=== PATIENT | male | born 1990 | race Caucasian/White ===

== ENCOUNTER 2016-07-29 20:31 | Emergency (ER) | payer MEDICAID ==
[2016-07-29 20:47] VITALS: BP 131/83; PULSE 75; RESP 16; TEMP 98.1; O2SAT 95
--- NOTE | 2016-07-29 21:01 | EDPHY ---
H & P Time Seen by Provider: 07/29/16 20:40 HPI/ROS: CHIEF COMPLAINT: "I just want to talk to someone" HISTORY OF PRESENT ILLNESS: 25-year-old male self-described history of depression, PTSD, took the bus to the emergency department stating "just want to talk to somebody". He has been off of his medications and feels that he is "starting to go down". He denies suicidal or homicidal ideation. Denies self- injurious attempt. PHYSICAL EXAM (Prior to examination, patient consented to physical exam, hands were washed and my usual and customary physical exam procedures followed) 1) GENERAL: Well-developed, well-nourished, alert and oriented. Appears to be in no acute distress. 2) HEAD: Normocephalic 3) HEENT: sclera anicteric 4) LUNGS: Breathing comfortably. 5) PSYCHIATRIC: depressed, flat affect Smoking Status: Unknown if ever smoked Constitutional: Initial Vital Signs Temperature (C) 36.7 C 07/29/16 20:45 Heart Rate 75 07/29/16 20:45 Respiratory Rate 16 07/29/16 20:45 Blood Pressure 131/83 H 07/29/16 20:45 O2 Sat (%) 95 07/29/16 20:45 O2 Delivery Mode Room Air Allergies/Adverse Reactions: No Known Allergies Allergy (Unverified 07/29/16 20:48) Home Medications: Medication Instructions Recorded Flexeril 07/29/16 GABAPENTIN 07/29/16 Quetiapine Fumarate [Seroquel] 07/29/16 buPROPion SR [Wellbutrin 100mg SR 07/29/16 (*)] traZODone 07/29/16 MDM/Departure - MDM ED Course/Re-evaluation: This patient denies suicidal homicidal ideation. He does not meet criteria for mental health hold that. I offered to send the patient via taxi to [facility] walk-in clinic. He is agreeable with this. - Depart Disposition: Home, Routine, Self-Care Clinical Impression: PTSD (post-traumatic stress disorder) Condition: Fair Instructions: Post Traumatic Stress Disorder (ED) Additional Instructions: Call 911 if you develop thoughts of hurting yourself or hurting anybody else Referrals: [facility],. [Clinic] - 07/29/16 9:30 pm (Go directly to the [facility] walk-in clinic on [address] in [place])
== END 2016-07-29 21:15 | disposition home or self-care (01) ==
DX: F43.10 Post-traumatic stress disorder, unspecified (principal)

== ENCOUNTER 2017-11-07 00:55 | Emergency (ER) | payer MEDICAID, OTHER ==
[2017-11-07] MEDS ORDERED: ONDANSETRON 4 MG/2 ML VIAL ONE (01:01)
[2017-11-07] MEDS ORDERED: ONDANSETRON 4 MG/2 ML VIAL IVP ONE (01:08)
[2017-11-07] MEDS ORDERED: NS 1,000 ML IV ONE (01:20)
--- NOTE | 2017-11-07 02:37 | EDPHY ---
H & P Stated Complaint: N/v, "bug bites all over" from camping Time Seen by Provider: 11/07/17 01:10 HPI/ROS: Chief Complaint: Nausea HPI: 27-year-old male [place] Patient discovered he did not have 10 full so simply set up a sleeping bag on the ground. Patient woke up a couple hours later and felt nauseated. He vomited once. Continues to feel nauseated. Patient pack tepid stuff and flagged down a car and called 911. Does not have a history of similar symptoms in the past. Does smoke marijuana daily. Denies abdominal pain. No fevers or chills. No blood or coffee-grounds in his vomit. No dark black tarry stools. ROS: 10 point Review of Systems is negative except as noted in the HPI. PMH: Denies Social History: Positive smoking, occasional alcohol, daily marijuana Family History: non-contributory Physical Exam: Gen: Awake, Alert, No Distress HEENT: Nose: no rhinorrhea Eyes: PERRLA, EOMI Mouth: Moist mucosa Neck: Supple, no JVD Chest: nontender, lungs clear to auscultation Heart: S1, S2 normal, no murmur Abd: Soft, non-tender, no guarding Back: no CVA tenderness, no midline tenderness Ext: no edema, non-tender Skin: no rash Neuro: CN II-XII intact, Sensation grossly intact, Strength 5/5 in bilateral upper and lower extremities - Personal History Current Tetanus Diphtheria and Acellular Pertussis (TDAP): Unsure - Medical/Surgical History Hx Asthma: No Hx Chronic Respiratory Disease: No Hx Diabetes: No Hx Cardiac Disease: No Hx Renal Disease: No Hx Cirrhosis: No Hx Alcoholism: No Hx HIV/AIDS: No Hx Splenectomy or Spleen Trauma: No Other PMH: PTSD, right shoulder injury, depression, anxiety - Social History Smoking Status: Unknown if ever smoked Constitutional: Initial Vital Signs Temperature (C) 36.8 C 11/07/17 01:04 Heart Rate 71 11/07/17 01:04 Respiratory Rate 20 11/07/17 01:04 Blood Pressure 138/67 H 11/07/17 01:04 O2 Sat (%) 98 11/07/17 01:04 O2 Delivery Mode Room Air Allergies/Adverse Reactions: No Known Allergies Allergy (Unverified 07/29/16 20:48) Home Medications: Medication Instructions Recorded Flexeril 07/29/16 GABAPENTIN 07/29/16 Quetiapine Fumarate [Seroquel] 07/29/16 buPROPion SR [Wellbutrin 100mg SR 07/29/16 (*)] traZODone 07/29/16 Medical Decision Making ED Course/Re-evaluation: Patient is sleeping. He has received 1 L normal saline and IV Zofran. Patient is tolerating p.o.. [facility] , return for any concerns. No evidence of acute obstruction, intra-abdominal infection, or other acute surgical process. - Data Points Medications Given: Discontinued Medications Sodium Chloride (Ns) 1,000 mls @ 0 mls/hr IV ONCE ONE PRN Reason: Wide Open Stop: 11/07/17 01:21 Last Admin: 11/07/17 01:21 Dose: 1,000 mls Ondansetron HCl (Zofran) 4 mg IVP EDNOW ONE Stop: 11/07/17 01:09 Last Admin: 11/07/17 01:08 Dose: 4 mg Departure - Departure Disposition: Home, Routine, Self-Care Clinical Impression: Nausea & vomiting Condition: Good Instructions: Acute Nausea and Vomiting (ED) Additional Instructions: Follow up at [facility] in 3-4 days for further evaluation. Return to the emergency department for worsening abdominal pain, uncontrolled vomiting, fevers, chills, or any other concerns. Referrals: [facility],. [Clinic] - As per Instructions
[2017-11-07 03:05] VITALS: BP 128/78
== END 2017-11-07 03:10 | disposition home or self-care (01) ==
LOC: EDUNIT#
DX: R11.2 Nausea with vomiting, unspecified (principal)
CPT/HCPCS: 96374; J2405

== ENCOUNTER 2018-01-24 17:28 | Emergency (ER) | payer MEDICAID ==
--- NOTE | 2018-01-24 17:42 | EDPHY ---
General - History Smoking Status: Unknown if ever smoked Time Seen by Provider: 01/24/18 17:35 Narrative: CHIEF COMPLAINT: M1 HISTORY OF PRESENT ILLNESS: Patient presents to on M1 hold due to suicidal ideation. He reports increasing depression this morning that has increased throughout the day. He has felt very suicidal and had a plan of killing himself by jumping in front of the vehicle. He denies any actual attempt to do so, and felt remorseful and went to the crisis Center. They placed him on a hold and sent him here. Symptoms have been persistent. He has history of PTSD and major depressive disorder. He has been off his medications due to 3 months. He admits to speed use yesterday but denies any methamphetamine or alcohol use today. No other associated complaints or modifying factors. No recent mental health care. PSYCHIATRIC DIAGNOSES: PTSD, major depressive disorder PRIOR PSYCHIATRIC EVALUATIONS: Multiple inpatient evaluation M1/DETAINER: Crisis Center just prior to arrival REVIEW OF SYSTEMS: Ten systems reviewed and are negative unless otherwise noted in the HPI EXAMINATION General Appearance: Alert, no distress. Unkempt. Strong odor of feces. Head: normocephalic, atraumatic Eyes: Pupils equal and round, no conjunctival pallor or injection ENT, Mouth: Mucous membranes moist Neck: Normal inspection, supple, non-tender Respiratory: Lungs are clear to auscultation Cardiovascular: Regular rate and rhythm Gastrointestinal: Abdomen is soft and nontender Back: non-tender, no bony abnormalities Neurological: A&O, nonfocal, normal gait Skin: Unclean but grossly intact. Warm and dry, no rash Extremities: Nontender, no pedal edema Psychiatric: Depressed mood and flat affect. Admits to suicidal ideation with a plan of standing in front of a vehicle to kill himself. DIFFERENTIAL DIAGNOSES: Including but not limited to suicidal ideation, depression, major depressive disorder, PTSD MDM: 5:40 p.m. M1 hold due to suicidal ideation. The patient admits to feeling depressed, wanting to with a plan of jumping out front of a car. He says he has attempted overdose in the past, several years ago per he does admit to "speed" use yesterday. Denies any alcohol or methamphetamine use today. He is cooperative thus far. He knows that he is on an M1 hold. 6:30 p.m. Patient medically cleared for evaluation. 7:00 p.m. Notified that the patient has been evaluated by [facility]. 9:00 p.m. Patient resting comfortably watching television. 11:15 p.m. Notified by Ramos Mosquera Patient has been accepted to [facility]. He will be transported by EMS. EMTALA completed by Dr. Cole. SUPERVISION: Patient was independently examined, but I discussed the case with my secondary supervising physician Dr. Cole ([facility]) Medical Decision Making: The patient will be transferred to [facility] for inpatient psychiatric hospital bed not available at this facility, in stable condition; accepting physician is Dr. Smith. EMTALA form completed. PHYSICIAN DOCUMENTATION: The patient was evaluated and managed by the Physician [employer] and myself. I have reviewed the chart and agree with the findings and plan of care as documented. In addition, I examined the patient myself at 2310. History confirmed as suicidal ideation. Physical findings as follows: Patient is reluctant to make eye contact, flat affect. He will be admitted after psychiatric evaluation for ATU stabilization. I am the secondary supervising physician. (Sean Cole) - Objective Vital Signs: Initial Vital Signs Temperature (C) 37.0 C 01/24/18 17:14 Heart Rate 81 01/24/18 17:14 Respiratory Rate 16 01/24/18 17:14 Blood Pressure 148/85 H 01/24/18 17:14 O2 Sat (%) 97 01/24/18 17:14 O2 Delivery Mode Room Air Allergies/Adverse Reactions: No Known Allergies Allergy (Unverified 07/29/16 20:48) Home Medications: Medication Instructions Recorded Flexeril 07/29/16 GABAPENTIN 07/29/16 Quetiapine Fumarate [Seroquel] 07/29/16 buPROPion SR [Wellbutrin 100mg SR 07/29/16 (*)] traZODone 07/29/16 Laboratory Results: Laboratory Results 01/24/18 18:00 01/24/18 18:00 01/24/18 01/24/18 01/24/18 18:00 18:00 17:30 WBC 9.86 10^3/uL H 10^3/uL (3.80-9.50) RBC 4.37 10^6/uL L 10^6/uL (4.40-6.38) Hgb 13.0 g/dL L g/dL (13.7-17.5) Hct 35.6 % L % (40.0-51.0) MCV 81.5 fL fL (81.5-99.8) MCH 29.7 pg pg (27.9-34.1) MCHC 36.5 g/dL g/dL (32.4-36.7) RDW 12.8 % % (11.5-15.2) Plt Count 209 10^3/uL 10^3/uL (150-400) MPV 8.4 fL L fL (8.7-11.7) Neut % (Auto) 56.1 % % (39.3-74.2) Lymph % (Auto) 32.9 % % (15.0-45.0) [place] % (Auto) 9.7 % % (4.5-13.0) Eos % (Auto) 0.9 % % (0.6-7.6) Baso % (Auto) 0.3 % % (0.3-1.7) Nucleat RBC Rel Count 0.0 % % (0.0-0.2) Absolute Neuts (auto) 5.53 10^3/uL 10^3/uL (1.70-6.50) Absolute Lymphs (auto) 3.24 10^3/uL H 10^3/uL (1.00-3.00) Absolute Monos (auto) 0.96 10^3/uL H 10^3/uL (0.30-0.80) Absolute Eos (auto) 0.09 10^3/uL 10^3/uL (0.03-0.40) Absolute Basos (auto) 0.03 10^3/uL 10^3/uL (0.02-0.10) Absolute Nucleated RBC 0.00 10^3/uL 10^3/uL (0-0.01) Immature Gran % 0.1 % % (0.0-1.1) Immature Gran # 0.01 10^3/uL 10^3/uL (0.00-0.10) Sodium 139 mEq/L mEq/L (135-145) Potassium 3.5 mEq/L mEq/L (3.3-5.0) Chloride 100 mEq/L mEq/L (97-110) Carbon Dioxide 29 mEq/l mEq/l (22-31) Anion Gap 10 mEq/L mEq/L (8-16) BUN 22 mg/dL mg/dL (7-23) Creatinine 0.7 mg/dL mg/dL (0.7-1.3) Estimated GFR > 60 Glucose 111 mg/dL H mg/dL (70-100) Calcium 8.9 mg/dL mg/dL (8.5-10.4) Salicylates < 1.0 mg/dL L mg/dL (2.0-20.0) Urine Opiates Screen NEGATIVE (NEGATIVE) Acetaminophen < 10 mcg/mL L mcg/mL (10-30) Urine Barbiturates NEGATIVE (NEGATIVE) Ur Phencyclidine Scrn NEGATIVE (NEGATIVE) Ur Amphetamine Screen NEGATIVE (NEGATIVE) U Benzodiazepines Scrn NEGATIVE (NEGATIVE) Urine Cocaine Screen NEGATIVE (NEGATIVE) U Marijuana (THC) Screen NEGATIVE (NEGATIVE) Ethyl Alcohol < 10 mg/dL mg/dL (0-10) Departure - Departure Disposition: Other Psych, Not [place] Clinical Impression: Suicidal ideation Condition: Good Referrals: Patient,NotPresent [Primary Care Provider] - As per Instructions
[2018-01-24 18:08] LABS: PLATELET COUNT 209 10^3/uL (150-400)
--- NOTE | 2018-01-24 22:41 | ASMTLCPROG ---
Notes Note: Notes: [facility] evealed at clinic, and [facility] [place] [facility] [employer] authed ATU. PT was placed at [facility]. Date Signed: 01/24/2018 10:41 PM Electronically Signed By:Carlos Eduardo Magaña
--- NOTE | 2018-01-24 22:44 | ASMTTCLDSP ---
TLC Discharge Disposition Disposition: Answers: Transfer Disposition Notes: Notes: In consultation with [facility] ED physician, Sean Cole MD and on-call psychiatrist, Caryn Fonseca MD, both concurred that pt appears to meet 27-65 criteria requiring psychiatric hospitalization as pt appears to be at risk of harm to self due to a mental illness condition Discharge Concerns/Recommendations: Notes: [place] [facility] Aut[facility] ATU. Was patient given the Answers: Not applicable Inpatient Behavioral Health Prohibited Belongings List while in the ED? Hold initiated by: Answers: Other Notes: [facility] [employer] For Transfers, Accepting [place] Facility: For Transfers, Accepting [facility] Smith NP Psychiatrist: Date Signed: 01/24/2018 10:44 PM Electronically Signed By:Carlos Eduardo Magaña
[2018-01-25 00:28] VITALS: BP 131/75
== END 2018-01-25 00:25 ==
LOC: EDUNIT#
DX: F32.9 Major depressive disorder, single episode, unspecified (principal); R45.851 Suicidal ideations; F43.10 Post-traumatic stress disorder, unspecified; T43.506A Underdosing of unspecified antipsychotics and neuroleptics, initial encounter
CPT/HCPCS: 80305; G0480